=== PATIENT | male | born 1980 | race Caucasian/White ===

== ENCOUNTER 2023-11-12 11:26 | Outpatient (AMB) | payer SELFPAY ==
--- NOTE | 2023-11-12 12:12 | AM.OFFWIN_ITS ---
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 Pt states his girlfriend did have the flu a few weeks ago. 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 Reporting symptoms of sinus congestion, sore throat and difficulty swallowing. Low-grade fever. No family member is sick. No recent travel. Patient reports symptoms of malaise and fatigue. PFSH Social History Patient Tobacco Use Status: Current everyday Tobacco user Physical Exam Vital Signs: Last Vital Signs Temp 99.4 F 11/12/23 12:14 Pulse 87 11/12/23 12:14 BP 92/62 11/12/23 12:14 Pulse Ox 95 11/12/23 12:14 Oxygen Delivery Method Room Air 11/12/23 12:14 BMI result Body Mass Index 21.5 Const General: cooperative and healthy appearing Nutritional Appearance: well nourished Orientation/consciousness: patient oriented x3 Limitations: no limitations HEENT Head: Yes normal to inspection Eyes General: appearance normal, both eyes and all related structures Neck Neck: Yes normal visual inspection Chest Chest palpation & inspection: normal palpation of entire chest wall Resp Effort & Inspection: normal respiratory effort Neuro General: patient oriented x3 Assessment & Plan Assessment & Plan (1) Upper respiratory tract infection: Code(s): J06.9 - Acute upper respiratory infection, unspecified Plan: Antiviral ordered. Increase fluid intake. Tylenol for aches and pains. If symptoms worsen, follow-up here for a recheck. Orders: Orders SARS-CoV2/FLU/RSV Today R43.9 - Unspecified disturbances of smell and taste Medications: New oseltamivir (Tamiflu) 75 mg PO BID 5 days 10 caps 0RF Coding Level of Care Code Est Pt Level 3 (25989) Diagnoses Upper respiratory tract infection J06.9
[2023-11-12 12:14] VITALS: BP 92/62; PULSE 87; TEMP 37.4; O2SAT 95; BMI 21.5
== END 2023-11-12 13:05 | disposition home or self-care (01) ==
PROVIDERS: Visit Provider Internal Medicine
DX: J06.9 Acute upper respiratory infection, unspecified (principal)
CPT/HCPCS: 99213

== ENCOUNTER 2023-11-12 16:41 | Outpatient (REF) | payer SELFPAY ==
[2023-11-12 17:35] LABS: Influenza A PCR POSITIVE (Negative); Influenza B PCR NEGATIVE (Negative); Resp Syncy Virus RNA Qual PCR NEGATIVE (Negative); SARS COV2 PCR INHOUSE NEGATIVE (Negative)
== END 2023-11-12 16:42 | disposition home or self-care (01) ==
LOC: HO.LNP 16:41
PROVIDERS: Visit Provider Internal Medicine
DX: Z11.52 Encounter for screening for COVID-19 (principal); Z20.822 Contact with and (suspected) exposure to COVID-19; R43.9 Unspecified disturbances of smell and taste
CPT/HCPCS: 0241U